=== PATIENT | male | born 1990 | race Caucasian/White ===

== ENCOUNTER 2018-07-07 08:46 | Emergency (ER) | payer SELFPAY ==
[~2018-07-07] VITALS: Ht 172.7 cm; Wt 75.0 kg
[~2018-07-07 08:46] MED LIST: DENIES MEDS; IBUP-1542 PO
[2018-07-07 08:53] VITALS: Ht 172.7 cm; Wt 75.0 kg
[2018-07-07] MEDS ORDERED: LEVETIRACETAM 500 MG TAB PO ONE (09:00)
[2018-07-07] MEDS ORDERED: LEVE-5 PO (09:40)
--- NOTE | 2018-07-07 09:42 | ERD ---
ER Documentation Chief Complaint Chief Complaint SEIZURE EPISODE.NOT TAKING ANY MEDS.LAST EPISODE A YEAR AGO. HPI 28-year-old male presents by paramedics after a seizure. Patient has a history of a seizure disorder secondary to a previous traumatic injury. He has been without seizures for 2 years now. He has been off his Keppra for that time. Today he had a witnessed grand mal self-limited seizure. Prior to the seizure, he had no significant headache, focal weakness, numbness, fever or any other symptoms. I have reviewed the [facility] pre-hospital care. Pre-hospital vital signs were reviewed. Pre-hospital diagnostic tests were reviewed. Upon arrival, patient has no symptoms including no headache, focal weakness or numbness and feels fine. ROS All systems reviewed and are negative except as per history of present illness. Medications Home Meds Active Scripts Levetiracetam* (Keppra*) 500 Mg Tablet, 500 MG PO BID, #20 TAB Prov:AJITH MARTINSON 07/07/18 Discontinued Reported Medications [Denies Meds] No Conflict Check 08/08/10 Discontinued Scripts Ibuprofen* (Motrin*) 600 Mg Tab, 600 MG PO Q6H PRN for PAIN AND OR ELEVATED TEMP, #30 TAB Prov:SHEELA CANESCO PA-C 04/05/16 Allergies Allergies: Coded Allergies: No Known Drug Allergy (Verified Allergy, Mild, 07/07/18) PMhx/Soc History of Surgery: No Anesthesia Reaction: No Hx Neurological Disorder: Yes (seizures) Hx Respiratory Disorders: No Hx Cardiac Disorders: No Hx Psychiatric Problems: No Hx Miscellaneous Medical Probl: No Hx Alcohol Use: Yes (occassional) Hx Substance Use: No Hx Tobacco Use: No Physical Exam Vitals Vital Signs Date Temp Pulse Resp B/P (MAP) Pulse Ox O2 O2 Flow FiO2 Time Delivery Rate 07/07/18 98.1 97 18 128/72 98 08:53 (90) Physical Exam GENERAL: The patient is well developed and appropriate for usual state of health in no apparent distress HEENT: Pupils equal, round, and reactive to light. EOMI. There is no scleral icterus. NECK: C-spine is soft and supple, there is no meningismus. There is no cervical lymphadenopathy. LUNGS: Clear to auscultation bilaterally. There are no rales, wheezes or rhonchi. HEART: Regular rate and rhythm, no murmurs, clicks, rubs or gallops. ABDOMEN: Soft, non-tender, non-distended. There are bowel sounds in all four quadrants. No rebound or guarding. EXTREMITIES: There is no peripheral cyanosis or edema. No focal swelling or erythema. NEURO: The patient moves all four extremities with 5/5 strength. Cranial nerves II - XII are intact. Normal gait. Alert and oriented SKIN: There is no apparent rash or petechiae. HEME/LYMPHATIC: There is no evidence of excessive bruising or lymphedema. PSYCHIATRIC: The patient does not appear anxious or depressed. Results 24 hrs Current Medications Medications Dose Sig/Isela Start Time Status Last (Trade) Ordered Route PRN Stop Time Admin Dose Reason Admin 500 mg ONCE ONCE 07/07/18 DC 07/07/18 Levetiracetam PO 09:00 07/07/18 09:29 (Keppra) 09:01 Procedures/MDM Patient was taken to a room, seen and examined Medical decision makin-year-old male presents the emergency department after a seizure. He has a known existing seizure disorder and has been off his medications. Patient presents neurologically normal with no signs of focal neurologic symptoms. He is already had a previous diagnostic workup and therefore I have deferred imaging. Patient appears neurologically normal and h as been seizure-free for over an hour in the emergency department and seems appropriate for outpatient care at this time having been placed back on his seizure medications. Departure Diagnosis: Primary Impression: Seizure disorder Condition: Stable Patient Instructions: Seizure, Recurrent [Adult] Additional Instructions: NO driving until you are cleared to do so by your neurologist. Return for any problems or concerns HARSH MARTIN Jul 07, 2018 09:42
[2018-07-07 09:58] VITALS: BP 113/69; PULSE 65; RESP 18
== END 2018-07-07 10:23 | disposition home or self-care (01) ==
LOC: E/R 08:46
DX: G40.909 Epilepsy, unspecified, not intractable, without status epilepticus (principal); R40.2142 Coma scale, eyes open, spontaneous, at arrival to emergency department; R40.2252 Coma scale, best verbal response, oriented, at arrival to emergency department; R40.2362 Coma scale, best motor response, obeys commands, at arrival to emergency department
CPT/HCPCS: 99283